=== PATIENT | female | born 1960 | race Hispanic/Latino ===

== ENCOUNTER 2018-05-10 16:15 | Emergency (ER) | payer OTHER ==
[2018-05-10] MEDS ORDERED: ACETAMINOPHEN EXTRA STRENGTH 500 MG TABLET ONE (16:26)
[2018-05-10] MEDS ORDERED: DIAZEPAM 5 MG TABLET ONE (16:27)
== END 2018-05-10 17:32 | disposition home or self-care (01) ==
LOC: EDH 16:15
DX: S16.1XXA Strain of muscle, fascia and tendon at neck level, initial encounter (principal); V49.49XA Driver injured in collision with other motor vehicles in traffic accident, initial encounter; Y93.89 Activity, other specified; Y92.410 Unspecified street and highway as the place of occurrence of the external cause; Y99.8 Other external cause status
CPT/HCPCS: 72125